=== PATIENT | male | born 1945 | race Caucasian/White ===

== ENCOUNTER → 2017-11-11 | Outpatient (CLI) | payer OTHER | LOC: BHFA 10:00 | PROVIDERS: ATTEND Internal Medicine Cardiovascular Disease | DX: R09.89 Other specified symptoms and signs involving the circulatory and respiratory systems (principal); I10 Essential (primary) hypertension ==

== ENCOUNTER 2018-01-28 12:29 | Emergency (ER) | payer OTHER ==
--- NOTE | 2018-01-28 12:50 | EDPHY ---
H & P Time Seen by Provider: 01/28/18 12:49 HPI/ROS: Chief complaint. Rectal bleeding HPI. 72-year-old male with bleeding from his bottom since last night. He saw his PCP earlier this week for hemorrhoid. He has been using preparation H. Since last night though he has had continuous bleeding from his bottom. No pain. No abdominal pain. He is using MiraLax now to prevent constipation. He had a normal colonoscopy 1 year ago. Again no abdominal pain, nausea vomiting, diarrhea. Slight constipation. He can feel a hard knot at his rectum. ROS Constitutional. no fever/chills, no weakness Eyes. no problems with vision ENT. no sore throat, no nasal drainage Cardiovascular. no chest pain Respiratory. no shortness of breath, no cough Abdominal. Rectal bleeding and hard knot at bottom . no problems urinating MS. no calf pain/swelling, no neck/back pain, no joint pain Skin. no rash Lymph. no swollen glands Neuro. no headache, no dizziness, no difficulty walking or with speech Past Medical/Surgical History: Hemorrhoids, BPH Social History: , nonsmoker, no alcohol Smoking Status: Former smoker Physical Exam: General Appearance: Alert pleasant well-developed male mild distress vital signs are stable Eyes: Pupils equal and round no pallor or injection. ENT, Mouth: Mucous membranes are moist. Respiratory: There are no retractions, lungs are clear to auscultation. Cardiovascular: Regular rate and rhythm. Gastrointestinal: Abdomen is soft and nontender, no masses, bowel sounds normal. Rectal exam shows a thrombosed external hemorrhoid that is bleeding. Neurological: Awake and alert, sensory and motor exams grossly normal. Skin: Warm and dry, no rashes. Musculoskeletal: Neck is supple nontender. Extremities symmetrical, full range of motion. Psychiatric: Patient is oriented X 3, there is no agitation. Constitutional: Initial Vital Signs Temperature (C) 36.4 C 01/28/18 12:32 Heart Rate 67 01/28/18 12:32 Respiratory Rate 16 01/28/18 12:32 Blood Pressure 147/72 H 01/28/18 12:32 O2 Sat (%) 96 01/28/18 12:32 O2 Delivery Mode Room Air Allergies/Adverse Reactions: Penicillins Allergy (Intermediate, Verified 01/28/18 12:31) hives as a child Home Medications: Medication Instructions Recorded Aspirin [Aspirin 81mg (OTC)] 81 mg PO DAILY 02/20/12 Atorvastatin Calcium [Lipitor 20 20 mg PO DAILY 02/20/12 mg (RX)] Lisinopril [Zestril 5 mg (RX)] 5 mg PO DAILY 02/20/12 Tamsulosin HCl [Flomax 0.4 MG (*)] 0.4 mg PO 01/28/18 Medical Decision Making Procedures: 1% lidocaine with epinephrine is infiltrated into the thrombosed hemorrhoid. After good anesthesia obtained an elliptical incision is made. A large clot is removed and subsequently the hemorrhoid has already collapsed and is really no longer bleeding. Patient tolerates the procedure well ED Course/Re-evaluation: Patient remained stable. The patient, his , and I discussed treatment plan including criteria for return importance of follow-up and further evaluation. He expresses understanding and agreement Differential Diagnosis: I considered thrombosed verses non thrombosed hemorrhoid. I considered internal versus external hemorrhoid. I have considered lower GI bleeding as well. This appears to be a thrombosed external hemorrhoid Departure - Departure Disposition: Home, Routine, Self-Care Clinical Impression: Hemorrhoid Qualifiers: Hemorrhoid type: unspecified Qualified Code(s): K64.9 - Unspecified hemorrhoids Condition: Good Instructions: Hemorrhoids (ED) Additional Instructions: Soak in tub of warm to hot water 3 times daily next 2 days. Tucks pads from the pharmacy. Continue MiraLax to have soft stools the next several days. Return for pain, worsening bleeding. Recheck in 2 days if not improved Referrals: José Miguel Corona MD [Medical Doctor] - As per Instructions Francis Mejia MD [Primary Care Provider] - 2-3 days, if not improved
[2018-01-28 14:07] VITALS: BP 149/79
== END 2018-01-28 14:07 | disposition home or self-care (01) ==
PROC: 069Y0ZZ Drainage of Lower Vein, Open Approach (ICD-10-PCS; principal; 2018-01-28)
DX: K64.4 Residual hemorrhoidal skin tags (principal); Z79.82 Long term (current) use of aspirin; Z87.891 Personal history of nicotine dependence